=== PATIENT | male | born 1960 | race Two or more races ===

== ENCOUNTER 2022-01-02 12:48 | Emergency (ER) | payer MEDICAID, OTHER | END 2022-01-02 13:19 | disposition left against medical advice (07) | LOC: EDBD 12:48 → ER 12:48 | DX: Z04.3 Encounter for examination and observation following other accident (principal); Z53.21 Procedure and treatment not carried out due to patient leaving prior to being seen by health care provider ==

== ENCOUNTER 2022-01-02 20:23 | Emergency (ER) | payer MEDICAID, OTHER ==
[~2022-01-02] VITALS: Ht 180.3 cm; Wt 95.0 kg
[2022-01-02 20:40] VITALS: BP 112/76
[2022-01-03] MEDS ORDERED: KETOROLAC TROMETH 60MG/2ML VIAL IM ONE (04:00)
== END 2022-01-03 04:54 | disposition home or self-care (01) ==
LOC: ER 20:23
DX: S60.812A Abrasion of left wrist, initial encounter (principal); M79.10 Myalgia, unspecified site; M54.2 Cervicalgia; M25.561 Pain in right knee; M25.512 Pain in left shoulder; M25.511 Pain in right shoulder; E11.9 Type 2 diabetes mellitus without complications; V89.2XXA Person injured in unspecified motor-vehicle accident, traffic, initial encounter; Y93.89 Activity, other specified; Y92.410 Unspecified street and highway as the place of occurrence of the external cause; Y99.8 Other external cause status
CPT/HCPCS: 72040; 96372; 99283; J1885

== ENCOUNTER 2025-04-18 12:11 | Emergency (ER) | payer MEDICAID ==
[~2025-04-18] VITALS: Ht 180.3 cm; Wt 113.7 kg
[2025-04-18 13:25] VITALS: BP 133/88; PULSE 81; RESP 18; TEMP 98.7; O2SAT 95
--- NOTE | 2025-04-18 13:33 | ED.PDOC ---
History of Present Illness(SKN HPI Comments A 65 YEAR OLD MALE PRESENTS TO THE ED WITH COMPLAINT OF WOUND RECHECK OF RIGHT ANKLE. PATIENT STATES HE SUSTAINED A WOUND ON HIS RIGHT ANKLE ABOUT 2 MONTHS AGO AND STATES THIS WOUND HIS NEVER FULLY HEALED. PATIENT REPORTS HE BEGAN TO EXPERIENCE INCREASED REDNESS, PAIN, AND SWELLING OVER THE PAST 1 MONTH WITH WORSENING SYMPTOMS OVER THE PAST 1 WEEK. PATIENT IS REQUESTING THAT THIS WOUND BE CHECKED HERE IN THE ED HE IS CONCERNED FOR INFECTION DUE TO HIS HISTORY OF DIABETES. PATIENT DENIES FEVER, CHILLS, SHORTNESS OF BREATH, CHEST PAIN, ABDOMINAL PAIN, NAUSEA, VOMITING, HEADACHE, OR OTHER COMPLAINTS. NO OTHER SYMPTOMS OR MODIFYING FACTORS AT THIS TIME. PATIENT IS ALERT, ORIENTED X 4, AND HAS STEADY GAIT. Chief Complaint: Wound Check Time Seen by MD: 12:26 History of Present Illness: Nurses Notes, Medications, Allergies Allergies: Coded Allergies: NO KNOWN ALLERGIES (Unverified , 01/02/22) Information Source: Patient Mode of Arrival: Ambulatory Severity: Moderate Timing: Months Duration: Since onset Prehospital treatment: None Location: Other (RIGHT ANKLE) Mechanism: Preceding Wound Occurence: Indoors Object: None Condition of Object: None Retained Foreign Body: No Wound Type: Abrasion Immunization Status of Animal: NA Tetanus: Unknown History of: None Associated Signs and Symptoms: Redness, Swelling, Pain Past Medical History PAST MEDICAL HISTORY: DM Surgical History: Denies all surgeries Family History Family History: Reviewed,noncontributory to illness Social History Smoker: Non-Smoker Alcohol: Denies ETOH Use Drugs: Denies Drug Use Lives In: Home Constitutional: denies: chills, diaphoresis, fatigue, fever, malaise, sweats, weakness, others EENTM: denies: blurred vision, double vision, ear bleeding, ear discharge, ear drainage, ear pain, ear ringing, eye pain, eye redness, hearing loss, mouth pain, mouth swelling, nasal discharge, nose bleeding, nose congestion, nose p ain, photophobia, tearing, throat pain, throat swelling, voice changes, others Respiratory: denies: cough, hemoptysis, orthopnea, SOB at rest, shortness of breath, SOB with excertion, stridor, wheezing, others Cardiovascular: denies: chest pain, dizzy spells, diaphoresis, Dyspnea on exertion, edema, irregular heart beat, left arm pain, lightheadedness, palpitations, PND, syncope, others Gastrointestinal: denies: abdomen distended, abdominal pain, blood streaked bowels, constipated, diarrhea, dysphagia, difficulty swallowing, hematemesis, melena, nausea, poor appetite, poor fluid intake, rectal bleeding, rectal pain, vomiting, others Genitourinary: denies: burning, dysuria, flank pain, frequency, hematuria, incontinence, penile discharge, penile sore, pain, testicle pain, testicle swelling, urgency, others Neurological: denies: dizziness, fainting, headache, left sided numbness, left sided weakness, numbness, paresthesia, pre-existing deficit, right sided numbness, right sided weakness, seizure, speech problems, tingling, tremors, weakness, others Musculoskeletal: denies: back pain, gout, joint pain, joint swelling, muscle pain, muscle stiffness, neck pain, others Integumetry: reports: lesions, wounds, others (WOUND WITH REDNESS AND PAIN OF RIGHT ANKLE); denies: bruises, change in color, change in hair/nails, dryness, laceration, lumps, rash Allergic/Immunocompromised: denies: Difficulty Healing, Frequent Infections, Hives, Itching, others Hematologic/Lymphatic: denies: anemia, blood clots, easy bleeding, easy bruising, swollen glands, others Endocrine: denies: excessive hunger, excessive sweating, excessive thirst, excessive urination, flushing, intolerance to cold, intolerance to heat, unexplained weight gain, unexplained weight loss, others Psychiatric: denies: anxiety, bipolar disorder, depression, hopeless, panic disorder, schizophrenia, sleepless, suicidal, others All Other Systems: Reviewed and Negative Physical Exam General Appearance: No Apparent Distress, Normal HEENT: Normal ENT Inspection, PERRL/EOMI, Pharynx Normal, TMs Normal Neck: Full Range of Motion, Non-Tender, Normal, Normal Inspection Respiratory: Chest Non-Tender, Lungs Clear, No Accessory Muscle Use, No Respiratory Distress, Normal Breath Sounds Cardiovascular: No Edema, No JVD, No Murmur, No Gallop, Normal Peripheral Pulses, Regular Rate/Rhythm Breast Exam: Deferred Gastrointestinal: No Organomegaly, Non Tender, No Pulsatile Mass, Normal Bowel Sounds, Soft Genitalia: Deferred Pelvic: Deferred Rectal: Deferred Extremities: No calf tenderness, Normal capillary refill, Normal range of motion, No pedal edema, Tender (WITH A DRY WOUND ON RIGHT LATERAL ANKLE REGION, NO SWELLING AND OPEN WOUND, NEUROVASCULAR INTACT, NORMAL GAIT. ), Other (NO REDNESS, SWELLING AND DVT SIGNS OF RIGHT LOWER LEG. 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 Was a procedure done?: No Differential Diagnosis (INTG) Differential Diagnosis: Abrasion, Cellulitis, Contusion, Insect Envenomation, Puncture Wound Differential Diagnosis: Impetigo, Intertrigo, N/A Differential Diagnosis: N/A Abscess: N/A Differential Diagnosis: N/A X-Ray, Labs, Meds, VS Vital Signs Date Time Temp Pulse Resp B/P (MAP) Pulse Ox O2 Delivery O2 Flow Rate FiO2 04/18/25 13:25 98.7 81 18 133/88 (103) 95 98.7 04/18/25 13:25 81 18 95 Room Air 04/18/25 12:12 97.7 81 18 133/88 95 97.7 Lab Test 04/18/25 13:52 04/18/25 13:27 Range/Units White Blood Count 6.5 4.4-10.8 10^3/uL Red Blood Count 3.95 L 4.5-5.90 10^6/uL Hemoglobin 12.1 L 13.5-17.5 g/dL Hematocrit 34.2 L 41.0-53.0 % Mean Corpuscular Volume 86.5 80.0-100.0 fL Mean Corpuscular Hemoglobin 30.5 28.0-32.0 pg Mean Corpuscular Hemoglobin Concent 35.3 32.0-36.0 g/dL Red Cell Distribution Width 14.1 11.8-14.3 % Platelet Count 184 140-450 10^3/uL Mean Platelet Volume 7.8 6.9-10.8 fL Neutrophils (%) (Auto) 83.8 H 37.0-80.0 % Lymphocytes (%) (Auto) 11.7 10.0-50.0 % Monocytes (%) (Auto) 3.9 0.0-12.0 % Eosinophils (%) (Auto) 0.4 0.0-7.0 % Basophils (%) (Auto) 0.2 0.0-2.0 % Neutrophils # (Auto) 5.5 1.6-8.6 10 ^3/uL Lymphocytes # (Auto) 0.8 0.4-5.4 10 ^3/uL Monocytes # (Auto) 0.3 0-1.3 10 ^3/uL Eosinophils # (Auto) 0 0-0.8 10 ^3/uL Basophils # (Auto) 0 0-0.2 10 ^3/uL Nucleated Red Blood Cells 0.0 % Sodium Level 137 136-145 mmol/L Potassium Level 4.5 3.5-5.1 mmol/L Chloride Level 99 98-107 mmol/L Carbon Dioxide Level 27 20-31 mmol/L Anion Gap 11 5-15 Blood Urea Nitrogen 13 9-23 mg/dL Creatinine 0.81 0.700-1.30 mg/dL Glomerular Filtration Rate Calc 99 >90 mL/min BUN/Creatinine Ratio 16.0 10.0-20.0 Serum Glucose 119 H 74-106 mg/dL Calcium Level 9.5 8.7-10.4 mg/dL Current Medications Medications (Trade) Dose Ordered Sig/Maxx Route Start Time Stop Time Status Last Admin Ceftriaxone Sodium/Dextrose 50 ml @ 50 mls/hr ONCE ONCE IV 04/18/25 14:00 04/18/25 14:59 04/18/25 14:26 X-Ray, Labs, Meds, VS Comment EXTERNAL MEDICAL RECORDS REVIEWED: [NONE] INDEPENDENT HISTORIANS: [NONE] SOCIAL DETERMINANTS OF HEALTH: [NONE] LABS ORDERED: CBC, BMP REVIEWED AND INTERPRETED RESULTS: NORMAL IMAGING ORDERED: NONE TREATMENTS ORDERED: ROCEPHIN 2G IV PROCEDURES PERFORMED: NONE CRITICAL CARE TIME: NONE I HAVE DISCUSSED THE PATIENT WITH THE ATTENDING PHYSICIAN DR. ARAIZA AND HE AGREES WITH THE PATIENT'S PLAN OF CARE AND DISPOSITION. BASED ON HISTORY OF PRESENT ILLNESS, AND PHYSICAL EXAM, PATIENT WILL BE DISCHARG ED HOME. DISCUSSED PLAN FOR DISCHARGE HOME WITH RX [KEFLEX]. MEDICATION WARNINGS GIVEN. SHARED DECISION MAKING: DISCUSSED WITH PATIENT THAT THEIR WORKUP WAS NORMAL. PATIENT INSTRUCTED TO FOLLOW UP WITH PRIMARY CARE PROVIDER IN 1-2 DAYS FOR RE- EVALUATION OF SYMPTOMS. PATIENT VERBALIZES UNDERSTANDING TO RETURN TO ED FOR NEW OR WORSENING SYMPTOMS OR IF FOLLOW UP WITH PCP CANNOT BE OBTAINED. PATIENT FEELS COMFORTABLE GOING HOME AT THIS TIME. ALL QUESTIONS ADDRESSED AT TIME OF DISCHARGE. Time of 1ST Reevaluation: 15:00 Reevaluation 1ST: Improved Patient Education/Counseling: Diagnosis, Treatment, Need For Follow Up Family Education/Counseling: Diagnosis, Treatment, Need For Follow Up Medical Screening: No EMC Exist At This Time SEPSIS Sepsis Screen Date sepsis recognized/suspect: Apr 18, 2025 Time Sepsis recognized/suspect: 1212 Recent Procedure: No On Antibiotic Therapy: No Respiratory Rate >20: No Heart Rate >90: No Temp<36 C (96.8 F) or >38.3 C: No SBP <90 or MAP <65 mmHG: No New Acute Mental Status Change: No Is the patient on CPAP, BIPAP,: No Physician Orders Heplock Iv (04/18/25 ) Ceftriaxone 2gm/50ml (Rocephin 2gm/50ml) (04/18/25 14:00) Vital Signs Date Time Temp Pulse Resp B/P (MAP) Pulse Ox O2 Delivery O2 Flow Rate FiO2 04/18/25 13:25 98.7 81 18 133/88 (103) 95 98.7 04/18/25 13:25 81 18 95 Room Air 04/18/25 12:12 97.7 81 18 133/88 95 97.7 Laboratory Tests Test 04/18/25 13:52 White Blood Count 6.5 10^3/uL (4.4-10.8) Medications Medications Dose Ordered Sig/Maxx Route Start Time Stop Time Status Last Admin Dose Admin Ceftriaxone Sodium/Dextrose 50 ml @ 50 mls/hr ONCE ONCE IV 04/18/25 14:00 04/18/25 14:59 04/18/25 14:26 Departure 1 Departure Time of Disposition: 15:00 Impression: Primary Impression: Encounter for wound re-check Disposition: HOME / SELF CARE / HOMELESS Condition: Stable Additional Instructions: FOLLOW-UP WITH PCP IN 1 TO 2 DAYS. TAKE MEDICATIONS PRESCRIBED. RETURN TO ED FOR ANY NEW OR WORSENING SYMPTOMS. e-Prescriptions Cephalexin Monohydrate (Cephalexin) 500 Mg Cap 1 CAP PO QID, #40 CAP Prov: MENA SERRA 04/18/25 Discharged With: Self Critical Care Note Critical Care Time?: No Stability Stability form required: No I personally scribed for MENA SERRA ([email or web address]) on 04/18/25 at 13:33. Electronically submitted by Ashwin Oliveros ([email or web address]). I personally scribed for MENA SERRA ([email or web address]) on 04/18/25 at 14:11. Electronically submitted by Ashwin Oliveros ([email or web address]). MENA SERRA Apr 18, 2025 13:33
[2025-04-18 13:45] LABS: Chloride 99 mmol/L (98-107); Potassium 4.5 mmol/L (3.5-5.1); Sodium 137 mmol/L (136-145)
[2025-04-18 13:46] LABS: Anion Gap 11 (5-15); Carbon Dioxide 27 mmol/L (20-31)
[2025-04-18 13:47] LABS: Calcium 9.5 mg/dL (8.7-10.4)
[2025-04-18 13:51] LABS: BUN/Creatinine Ratio 16.0 (10.0-20.0); Blood Urea Nitrogen 13 mg/dL (9-23)
[2025-04-18 13:52] LABS: Glucose 119 mg/dL (74-106)
[2025-04-18 14:08] LABS: Hematocrit 34.2 % (41.0-53.0); Hemoglobin 12.1 g/dL (13.5-17.5); Mean Corpuscular Hemoglobin 30.5 pg (28.0-32.0); Mean Corpuscular Volume 86.5 fL (80.0-100.0); Nucleated Red Blood Cells % 0.0 %
[2025-04-18] MEDS ORDERED: CEPH500C PO (14:43)
== END 2025-04-18 14:51 | disposition home or self-care (01) ==
LOC: ER 12:11
DX: M25.571 Pain in right ankle and joints of right foot (principal); M79.89 Other specified soft tissue disorders; E11.9 Type 2 diabetes mellitus without complications; Z48.00 Encounter for change or removal of nonsurgical wound dressing
CPT/HCPCS: 36415; 80048; 96365; 99284; J0696